=== PATIENT | female | born 1950 | race Caucasian/White ===

== ENCOUNTER 2017-10-09 18:04 | Emergency (ER) | payer SELFPAY, OTHER, MEDICARE | END 2017-10-09 20:05 | disposition left against medical advice (07) | LOC: E/R 18:04 | DX: Z53.21 Procedure and treatment not carried out due to patient leaving prior to being seen by health care provider (principal) ==

== ENCOUNTER 2017-11-17 21:38 | Emergency (ER) | payer MEDICARE, OTHER ==
[2017-11-17 23:14] LABS: ADD MAN DIFF? NO
[2017-11-17 23:18] LABS: WHITE BLOOD COUNT 10.1 10^3/ul (4.8-10.8)
[2017-11-17 23:18] LABS: BASOPHILS % 0.3 % (0.0-2.0); EOSINOPHILS # 0.2 10^3/ul (0.0-0.5); HEMATOCRIT 33.2 % (37.0-47.0); LYMPHOCYTES # 2.7 10^3/ul (0.8-2.9); MEAN CORPUSCULAR HEMOGLOBIN 32.3 pg (29.0-33.0); MEAN CORPUSCULAR HGB CONC 33.1 g/dl (32.0-37.0); MEAN CORPUSCULAR VOLUME 97.4 fl (82.0-101.0); MONOCYTES % 10.2 % (0.0-11.0); NEUTROPHIL # 6.1 10^3/ul (1.6-7.5); NEUTROPHILS % 60.2 % (39.0-77.0); PLATELET COUNT 241 10^3/UL (140-415); RED BLOOD COUNT 3.41 10^6/ul (4.20-5.40); RED CELL DISTRIBUTION WIDTH 13.6 % (11.5-14.5)
[2017-11-17 23:37] LABS: ALANINE AMINOTRANSFERASE 15 IU/L (13-69); ALBUMIN 4.5 g/dl (3.3-4.9); ALBUMIN/GLOBULIN RATIO 1.02; ALKALINE PHOSPHATASE 144 IU/L (42-121); ANION GAP 27 (8-16); ASPARTATE AMINO TRANSFERASE 28 IU/L (15-46); BLOOD UREA NITROGEN 84 mg/dl (7-20); CALCIUM 6.9 mg/dl (8.4-10.2); CARBON DIOXIDE 27 mmol/L (21-31); CHLORIDE 96 mmol/L (97-110); CREATININE 8.94 mg/dl (0.44-1.00); GLUCOSE 130 mg/dl (70-220); POTASSIUM 4.9 mmol/L (3.5-5.1); SODIUM 145 mmol/L (135-144); TOTAL PROTEIN 8.9 g/dl (6.1-8.1)
[2017-11-17 23:38] LABS: LACTIC ACID 0.9 mmol/L (0.5-2.0)
[2017-11-17 23:43] LABS: PARTIAL THROMBOPLASTIN TIME 34.4 Sec (25.0-35.0)
[2017-11-17 23:46] LABS: INR 1.09; PROTIME 14.2 Sec (11.9-14.9); PT RATIO 1.1
[2017-11-18 01:36] LABS: TROPONIN-I 0.013 ng/ml (0.00-0.12)
[2017-11-18 02:00] LABS: LACTIC ACID 0.8 mmol/L (0.5-2.0)
== END 2017-11-18 02:43 | disposition home or self-care (01) ==
LOC: E/R 21:38
DX: R53.1 Weakness (principal); I25.10 Atherosclerotic heart disease of native coronary artery without angina pectoris; I50.9 Heart failure, unspecified; N18.6 End stage renal disease; F17.210 Nicotine dependence, cigarettes, uncomplicated; E11.22 Type 2 diabetes mellitus with diabetic chronic kidney disease; Z79.84 Long term (current) use of oral hypoglycemic drugs
CPT/HCPCS: 36415; 71045; 80053; 83605; 84484; 85025; 85610; 85730; 87040; 93005; 99285-25

== ENCOUNTER 2018-09-11 07:13 | Inpatient (IN) | payer MEDICARE, OTHER ==
[2018-09-11 09:06] LABS: ADD MAN DIFF? NO
[2018-09-11 09:09] LABS: WHITE BLOOD COUNT 8.5 10^3/ul (4.8-10.8)
[2018-09-11 09:09] LABS: BASOPHIL # 0.1 10^3/ul (0.0-0.1); BASOPHILS % 0.9 % (0.0-2.0); EOSINOPHILS # 0.3 10^3/ul (0.0-0.5); EOSINOPHILS % 3.1 % (0.0-7.0); HEMATOCRIT 32.9 % (37.0-47.0); HEMOGLOBIN 10.4 g/dl (12.0-16.0); LYMPHOCYTES # 2.4 10^3/ul (0.8-2.9); MEAN CORPUSCULAR HEMOGLOBIN 31.2 pg (29.0-33.0); MEAN CORPUSCULAR HGB CONC 31.6 g/dl (32.0-37.0); MEAN CORPUSCULAR VOLUME 98.8 fl (82.0-101.0); MEAN PLATELET VOLUME 10.2 fl (7.4-10.4); MONOCYTE # 0.9 10^3/ul (0.3-0.9); NEUTROPHIL # 4.9 10^3/ul (1.6-7.5); NEUTROPHILS % 57.6 % (39.0-77.0); PLATELET COUNT 218 10^3/UL (140-415); RED BLOOD COUNT 3.33 10^6/ul (4.20-5.40)
[2018-09-11 09:28] LABS: CHOLESTEROL 134 mg/dl (100-200)
[2018-09-11 09:28] LABS: CHOL/HDL RATIO 4.6 RATIO; HDL CHOLESTEROL 29 mg/dl (35-98); LDL CHOLESTEROL,CALCULATED 72 mg/dl; TRIGLYCERIDES 164 mg/dl (0-149)
[2018-09-11 09:29] LABS: ANION GAP 15 (5-13); BLOOD UREA NITROGEN 53 mg/dl (7-20); CALCIUM 8.4 mg/dl (8.4-10.2); CARBON DIOXIDE 30 mmol/L (21-31); CHLORIDE 94 mmol/L (97-110); CREATININE 5.95 mg/dl (0.44-1.00); Estimated GFR 7 mL/min (>60); GLUCOSE 97 mg/dl (70-220); POTASSIUM 4.9 mmol/L (3.5-5.1); SODIUM 139 mmol/L (135-144)
[2018-09-11 09:33] LABS: INR 0.99; PROTIME 13.2 Sec (11.9-14.9)
[2018-09-11 09:34] LABS: PARTIAL THROMBOPLASTIN TIME 29.6 Sec (23.0-35.0)
[2018-09-11] MEDS ORDERED: IODIXANOL LOCM 100 ML BTL ×2 (09:47→10:53)
[2018-09-11] MEDS ORDERED: LIDOCAINE 1% (MDV) 20 ML INJ ×2 (09:47→10:13)
[2018-09-11] MEDS ORDERED: FENTAnyl 50 MCG/ML VIAL (09:48)
[2018-09-11] MEDS ORDERED: VERAPAMIL 5 MG INJ (09:48)
[2018-09-11] MEDS ORDERED: NITROGLYCERIN (IC) 100 MCG/ML INJ (09:48)
[2018-09-11] MEDS ORDERED: HEPARIN 1000 UNITS/ML 10 ML INJ (09:48)
[2018-09-11] MEDS ORDERED: MIDAZOLAM 1 MG/ML 2 ML INJ (09:49)
[2018-09-11] MEDS: SOD CHLORIDE 0.9% 1,000 ML IV (10:51)
[2018-09-11] MEDS ORDERED: ONDANSETRON 4 MG INJ IV ×2 (11:00→15:30)
[2018-09-11] MEDS ORDERED: AL HYDROX/MG HYDROX/SIMETH 30 ML CUP PO (11:00)
[2018-09-11] MEDS ORDERED: morphine 2 MG INJ IV (11:00)
[2018-09-11] MEDS: hydrALAzine 20 MG INJ IV (12:00)
[2018-09-11] MEDS: LIDOCAINE 1% (MPF) 5 ML VIAL SC (14:00)
[2018-09-11] MEDS ORDERED: OXYCODONE/ACETAMINOPHEN (5/325) TAB PO (15:30)
[2018-09-11] MEDS ORDERED: ACETAMINOPHEN 325 MG TAB PO (15:30)
[2018-09-11] MEDS ORDERED: NACL 0.9% 3 ML SYG IV (15:30)
[2018-09-11] MEDS ORDERED: morphine SULFATE/PF (2 MG/2 ML) SYG IV (15:30)
[2018-09-11] MEDS: CALCIUM ACETATE 667 MG CAP PO (17:28)
[2018-09-11] MEDS: SEVELAMER CARBONATE 0.8 GM PKT PO (17:28)
[2018-09-11] MEDS ORDERED: GLUCAGON 1 MG INJ IM (19:00)
[2018-09-11] MEDS ORDERED: GLUCOSE GEL 15 GRAM TUBE PO ×2 (19:00)
[2018-09-11] MEDS ORDERED: DEXTROSE 50% 50 ML SYRINGE IV ×2 (19:00)
[2018-09-11] MEDS ORDERED: GLUCOSE GEL 15 GRAM TUBE BUCCAL (19:00)
[2018-09-11] MEDS: INSULIN ASPART [NOVOLOG] 3 ML PEN SC (21:00)
[2018-09-11] MEDS: CALCIUM/VITAMIN D (500/200) TAB PO (21:15)
[2018-09-11] MEDS: GABAPENTIN 100 MG CAP PO (21:15)
[2018-09-11] MEDS: BENAZEPRIL 20 MG TAB PO (21:15)
[2018-09-11] MEDS: FAMOTIDINE 20 MG TAB PO (21:15)
[2018-09-11] MEDS: ATORVASTATIN 40 MG TAB PO (21:15)
[2018-09-11] MEDS: DOXAZOSIN 2 MG TAB PO (21:16)
[2018-09-11] MEDS: AMLODIPINE 5 MG TAB PO (21:16)
[2018-09-11] MEDS: TICAGRELOR 90 MG TABLET PO (21:24)
[2018-09-11] MEDS: DOCUSATE SODIUM 100 MG CAP PO (21:31)
[2018-09-11] MEDS: ACETAMINOPHEN 325 MG TAB PO (23:55)
[2018-09-12 06:24] LABS: ADD MAN DIFF? NO
[2018-09-12 06:30] LABS: WHITE BLOOD COUNT 9.2 10^3/ul (4.8-10.8)
[2018-09-12 06:30] LABS: BASOPHIL # 0.1 10^3/ul (0.0-0.1); BASOPHILS % 0.5 % (0.0-2.0); EOSINOPHILS # 0.3 10^3/ul (0.0-0.5); EOSINOPHILS % 3.3 % (0.0-7.0); HEMATOCRIT 29.6 % (37.0-47.0); HEMOGLOBIN 9.6 g/dl (12.0-16.0); LYMPHOCYTES # 2.2 10^3/ul (0.8-2.9); LYMPHOCYTES % 24.1 % (15.0-51.0); MEAN CORPUSCULAR HEMOGLOBIN 31.7 pg (29.0-33.0); MEAN CORPUSCULAR HGB CONC 32.4 g/dl (32.0-37.0); MEAN CORPUSCULAR VOLUME 97.7 fl (82.0-101.0); MEAN PLATELET VOLUME 10.5 fl (7.4-10.4); MONOCYTE # 1.2 10^3/ul (0.3-0.9); MONOCYTES % 12.6 % (0.0-11.0); NEUTROPHIL # 5.4 10^3/ul (1.6-7.5); NEUTROPHILS % 59.2 % (39.0-77.0); PLATELET COUNT 203 10^3/UL (140-415); RED BLOOD COUNT 3.03 10^6/ul (4.20-5.40); RED CELL DISTRIBUTION WIDTH 13.2 % (11.5-14.5)
[2018-09-12 06:51] LABS: HEMOGLOBIN A1C 6.7 % (0-5.9)
[2018-09-12 07:16] LABS: ANION GAP 15 (5-13); BLOOD UREA NITROGEN 69 mg/dl (7-20); CALCIUM 8.3 mg/dl (8.4-10.2); CARBON DIOXIDE 30 mmol/L (21-31); CHLORIDE 90 mmol/L (97-110); CREATININE 7.61 mg/dl (0.44-1.00); Estimated GFR 5 mL/min (>60); GLUCOSE 91 mg/dl (70-220); MAGNESIUM 2.6 mg/dl (1.7-2.5); POTASSIUM 4.9 mmol/L (3.5-5.1); SODIUM 135 mmol/L (135-144)
[2018-09-12] MEDS: INSULIN ASPART [NOVOLOG] 3 ML PEN SC ×4 (07:55→21:00)
[2018-09-12] MEDS: CALCIUM ACETATE 667 MG CAP PO ×3 (08:44→20:12)
[2018-09-12] MEDS: ASPIRIN (EC) 81 MG TAB PO (09:23)
[2018-09-12] MEDS: MULTIVIT/CA CARB/B CMPLX/FA TAB PO (09:23)
[2018-09-12] MEDS: CALCIUM/VITAMIN D (500/200) TAB PO ×3 (09:23→21:47)
[2018-09-12] MEDS: DOCUSATE SODIUM 100 MG CAP PO (09:23)
[2018-09-12] MEDS: FOLIC ACID 1 MG TAB PO (09:24)
[2018-09-12] MEDS: AMLODIPINE 5 MG TAB PO ×2 (09:24→21:52)
[2018-09-12] MEDS: BENAZEPRIL 20 MG TAB PO ×2 (09:24→21:47)
[2018-09-12] MEDS: SEVELAMER CARBONATE 800 MG TABLET PO ×3 (09:24→20:12)
[2018-09-12] MEDS: GABAPENTIN 100 MG CAP PO ×3 (09:24→21:47)
[2018-09-12] MEDS: TICAGRELOR 90 MG TABLET PO (09:26)
[2018-09-12] MEDS: ACETAMINOPHEN 325 MG TAB PO (09:38)
[2018-09-12] MEDS: CALCITRIOL 1 MCG INJ IV (12:31)
[2018-09-12 15:25] LABS: HEPATITIS B SURFACE ANTIGEN NEGATIVE (NEGATIVE)
[2018-09-12 15:43] LABS: HEPATITIS B SURFACE ANTIBODY POSITIVE (NEGATIVE)
[2018-09-12] MEDS: DOXAZOSIN 2 MG TAB PO (21:47)
[2018-09-12] MEDS: FAMOTIDINE 20 MG TAB PO (21:47)
[2018-09-12] MEDS: ATORVASTATIN 40 MG TAB PO (21:47)
[2018-09-12] MEDS: EPOETIN 10000 UNITS/1 ML INJ (ESRD) SC (21:49)
[2018-09-13 06:25] LABS: ADD MAN DIFF? NO
[2018-09-13 06:34] LABS: WHITE BLOOD COUNT 8.8 10^3/ul (4.8-10.8)
[2018-09-13 06:34] LABS: BASOPHIL # 0.1 10^3/ul (0.0-0.1); BASOPHILS % 0.7 % (0.0-2.0); EOSINOPHILS # 0.3 10^3/ul (0.0-0.5); EOSINOPHILS % 3.1 % (0.0-7.0); HEMATOCRIT 30.3 % (37.0-47.0); HEMOGLOBIN 9.9 g/dl (12.0-16.0); LYMPHOCYTES % 22.4 % (15.0-51.0); MEAN CORPUSCULAR HGB CONC 32.7 g/dl (32.0-37.0); MEAN CORPUSCULAR VOLUME 98.1 fl (82.0-101.0); MEAN PLATELET VOLUME 10.4 fl (7.4-10.4); MONOCYTE # 1.1 10^3/ul (0.3-0.9); MONOCYTES % 12.7 % (0.0-11.0); NEUTROPHIL # 5.4 10^3/ul (1.6-7.5); NEUTROPHILS % 60.8 % (39.0-77.0); PLATELET COUNT 204 10^3/UL (140-415); RED BLOOD COUNT 3.09 10^6/ul (4.20-5.40); RED CELL DISTRIBUTION WIDTH 13.4 % (11.5-14.5)
[2018-09-13 06:57] LABS: ANION GAP 10 (5-13); BLOOD UREA NITROGEN 37 mg/dl (7-20); CALCIUM 8.9 mg/dl (8.4-10.2); CARBON DIOXIDE 30 mmol/L (21-31); CHLORIDE 96 mmol/L (97-110); CREATININE 4.86 mg/dl (0.44-1.00); Estimated GFR 9 mL/min (>60); GLUCOSE 102 mg/dl (70-220); MAGNESIUM 2.5 mg/dl (1.7-2.5); PHOSPHORUS 3.5 mg/dl (2.5-4.9); SODIUM 136 mmol/L (135-144)
[2018-09-13 07:12] LABS: POTASSIUM 5.4 mmol/L (3.5-5.1)
[2018-09-13] MEDS: INSULIN ASPART [NOVOLOG] 3 ML PEN SC ×4 (07:48→21:28)
[2018-09-13] MEDS: DOCUSATE SODIUM 100 MG CAP PO (09:02)
[2018-09-13] MEDS: GABAPENTIN 100 MG CAP PO ×3 (09:03→21:04)
[2018-09-13] MEDS: BENAZEPRIL 20 MG TAB PO ×2 (09:03→21:04)
[2018-09-13] MEDS: AMLODIPINE 5 MG TAB PO ×2 (09:03→21:05)
[2018-09-13] MEDS: ASPIRIN (EC) 81 MG TAB PO (09:04)
[2018-09-13] MEDS: FOLIC ACID 1 MG TAB PO (09:04)
[2018-09-13] MEDS: CALCIUM/VITAMIN D (500/200) TAB PO ×3 (09:04→21:04)
[2018-09-13] MEDS: MULTIVIT/CA CARB/B CMPLX/FA TAB PO (09:05)
[2018-09-13] MEDS: SEVELAMER CARBONATE 800 MG TABLET PO ×3 (09:05→17:41)
[2018-09-13] MEDS: CALCIUM ACETATE 667 MG CAP PO ×3 (09:06→17:41)
[2018-09-13] MEDS: METOPROLOL 25 MG TAB PO ×2 (10:36→21:04)
[2018-09-13] MEDS: ATORVASTATIN 40 MG TAB PO (21:04)
[2018-09-13] MEDS: FAMOTIDINE 20 MG TAB PO (21:04)
[2018-09-13] MEDS: DOXAZOSIN 2 MG TAB PO (21:04)
[2018-09-14] MEDS: INSULIN ASPART [NOVOLOG] 3 ML PEN SC ×4 (07:31→20:47)
[2018-09-14] MEDS: SEVELAMER CARBONATE 800 MG TABLET PO ×3 (08:29→17:52)
[2018-09-14] MEDS: CALCIUM ACETATE 667 MG CAP PO ×3 (08:29→17:52)
[2018-09-14] MEDS: MULTIVIT/CA CARB/B CMPLX/FA TAB PO (08:30)
[2018-09-14] MEDS: ASPIRIN (EC) 81 MG TAB PO (08:30)
[2018-09-14] MEDS: CALCIUM/VITAMIN D (500/200) TAB PO ×3 (08:30→20:45)
[2018-09-14] MEDS: GABAPENTIN 100 MG CAP PO ×3 (08:30→20:45)
[2018-09-14] MEDS: FOLIC ACID 1 MG TAB PO (08:30)
[2018-09-14] MEDS: DOCUSATE SODIUM 100 MG CAP PO (08:31)
[2018-09-14] MEDS: METOPROLOL 25 MG TAB PO ×2 (09:00→20:45)
[2018-09-14] MEDS: BENAZEPRIL 20 MG TAB PO ×2 (09:00→20:46)
[2018-09-14] MEDS: DOXAZOSIN 2 MG TAB PO (20:45)
[2018-09-14] MEDS: FAMOTIDINE 20 MG TAB PO (20:45)
[2018-09-14] MEDS: ATORVASTATIN 40 MG TAB PO (20:45)
[2018-09-15] MEDS: INSULIN ASPART [NOVOLOG] 3 ML PEN SC ×4 (07:55→20:47)
[2018-09-15] MEDS: SEVELAMER CARBONATE 800 MG TABLET PO ×3 (08:01→17:44)
[2018-09-15] MEDS: BENAZEPRIL 20 MG TAB PO ×2 (08:02→20:38)
[2018-09-15] MEDS: ASPIRIN (EC) 81 MG TAB PO (08:03)
[2018-09-15] MEDS: MULTIVIT/CA CARB/B CMPLX/FA TAB PO (08:03)
[2018-09-15] MEDS: METOPROLOL 25 MG TAB PO ×2 (08:03→20:38)
[2018-09-15] MEDS: CALCIUM ACETATE 667 MG CAP PO ×3 (08:04→17:44)
[2018-09-15] MEDS: FOLIC ACID 1 MG TAB PO (08:04)
[2018-09-15] MEDS: CALCIUM/VITAMIN D (500/200) TAB PO ×3 (08:04→20:40)
[2018-09-15] MEDS: GABAPENTIN 100 MG CAP PO ×3 (08:04→20:38)
[2018-09-15] MEDS: DOCUSATE SODIUM 100 MG CAP PO (08:05)
[2018-09-15] MEDS: NIFEdipine (XL) 60 MG TAB PO (08:39)
[2018-09-15] MEDS: ISOSORBIDE DINITRATE 20 MG TAB PO ×3 (13:00→20:39)
[2018-09-15] MEDS: BISACODYL (EC) 5 MG TAB PO (15:00)
[2018-09-15] MEDS: EPOETIN 10000 UNITS/1 ML INJ (ESRD) SC (17:45)
[2018-09-15] MEDS: DOXAZOSIN 2 MG TAB PO (20:38)
[2018-09-15] MEDS: ATORVASTATIN 40 MG TAB PO (20:38)
[2018-09-15] MEDS: FAMOTIDINE 20 MG TAB PO (20:40)
[2018-09-15] MEDS ORDERED: morphine LIQ (10 MG/5 ML) CUP PO ×2 (23:45)
[2018-09-16 07:17] LABS: ANION GAP 10 (5-13); BLOOD UREA NITROGEN 60 mg/dl (7-20); CALCIUM 9.4 mg/dl (8.4-10.2); CARBON DIOXIDE 30 mmol/L (21-31); CHLORIDE 97 mmol/L (97-110); CREATININE 7.27 mg/dl (0.44-1.00); Estimated GFR 6 mL/min (>60); GLUCOSE 94 mg/dl (70-220); MAGNESIUM 2.7 mg/dl (1.7-2.5); PHOSPHORUS 2.8 mg/dl (2.5-4.9); POTASSIUM 5.4 mmol/L (3.5-5.1); SODIUM 137 mmol/L (135-144)
[2018-09-16] MEDS: INSULIN ASPART [NOVOLOG] 3 ML PEN SC ×4 (07:55→21:00)
[2018-09-16] MEDS: SEVELAMER CARBONATE 800 MG TABLET PO ×3 (08:50→18:34)
[2018-09-16] MEDS: CALCIUM ACETATE 667 MG CAP PO ×3 (08:51→18:34)
[2018-09-16] MEDS: ASPIRIN (EC) 81 MG TAB PO (08:51)
[2018-09-16] MEDS: CALCIUM/VITAMIN D (500/200) TAB PO ×3 (08:51→21:22)
[2018-09-16] MEDS: FOLIC ACID 1 MG TAB PO (08:51)
[2018-09-16] MEDS: BENAZEPRIL 20 MG TAB PO ×2 (08:51→21:00)
[2018-09-16] MEDS: DOCUSATE SODIUM 100 MG CAP PO (08:51)
[2018-09-16] MEDS: MULTIVIT/CA CARB/B CMPLX/FA TAB PO (08:51)
[2018-09-16] MEDS: METOPROLOL 25 MG TAB PO ×2 (08:52→21:00)
[2018-09-16] MEDS: GABAPENTIN 100 MG CAP PO ×3 (08:52→21:21)
[2018-09-16] MEDS: ISOSORBIDE DINITRATE 20 MG TAB PO ×3 (08:52→21:00)
[2018-09-16] MEDS: NIFEdipine (XL) 60 MG TAB PO (08:53)
[2018-09-16] MEDS: DOXAZOSIN 2 MG TAB PO (21:00)
[2018-09-16] MEDS: FAMOTIDINE 20 MG TAB PO (21:21)
[2018-09-16] MEDS: ATORVASTATIN 40 MG TAB PO (21:21)
[2018-09-17] MEDS: PROMETHAZINE/CODEINE 5ML CUP PO (00:21)
[2018-09-17] MEDS: ISOSORBIDE DINITRATE 20 MG TAB PO ×3 (00:22→13:05)
[2018-09-17] MEDS: INSULIN ASPART [NOVOLOG] 3 ML PEN SC ×3 (07:29→17:46)
[2018-09-17] MEDS: CALCIUM ACETATE 667 MG CAP PO ×3 (07:30→17:39)
[2018-09-17] MEDS: SEVELAMER CARBONATE 800 MG TABLET PO ×3 (07:30→17:39)
[2018-09-17] MEDS: CALCIUM/VITAMIN D (500/200) TAB PO ×2 (08:01→13:05)
[2018-09-17] MEDS: MULTIVIT/CA CARB/B CMPLX/FA TAB PO (08:01)
[2018-09-17] MEDS: NIFEdipine (XL) 60 MG TAB PO (08:01)
[2018-09-17] MEDS: FOLIC ACID 1 MG TAB PO (08:01)
[2018-09-17] MEDS: ASPIRIN (EC) 81 MG TAB PO (08:01)
[2018-09-17] MEDS: BENAZEPRIL 20 MG TAB PO (08:02)
[2018-09-17] MEDS: DOCUSATE SODIUM 100 MG CAP PO (08:02)
[2018-09-17] MEDS: GABAPENTIN 100 MG CAP PO ×2 (08:02→13:05)
[2018-09-17] MEDS: METOPROLOL 25 MG TAB PO (08:04)
[2018-09-17] MEDS: EPOETIN 10000 UNITS/1 ML INJ (ESRD) SC (17:40)
== END 2018-09-17 21:42 | disposition short-term general hospital (02) | DRG 286 ==
LOC: CCL 07:13 → SDS 07:13 → CCL 10:50 → REC 10:51 → TEL 12:35
PROC: 4A023N7 Measurement of Cardiac Sampling and Pressure, Left Heart, Percutaneous Approach (ICD-10-PCS; principal; 2018-09-11 09:00)
PROC: B211YZZ Fluoroscopy of Multiple Coronary Arteries using Other Contrast (ICD-10-PCS; 2018-09-11 09:00)
PROC: B215YZZ Fluoroscopy of Left Heart using Other Contrast (ICD-10-PCS; 2018-09-11 09:00)
PROC: 5A1D70Z Performance of Urinary Filtration, Intermittent, Less than 6 Hours Per Day (ICD-10-PCS; 2018-09-11 09:27)
PROC: 5A1D70Z Performance of Urinary Filtration, Intermittent, Less than 6 Hours Per Day (ICD-10-PCS; 2018-09-11 09:27)
PROC: 5A1D70Z Performance of Urinary Filtration, Intermittent, Less than 6 Hours Per Day (ICD-10-PCS; 2018-09-11 09:27)
PROC: 5A1D70Z Performance of Urinary Filtration, Intermittent, Less than 6 Hours Per Day (ICD-10-PCS; 2018-09-11 09:27)
DX: I25.10 Atherosclerotic heart disease of native coronary artery without angina pectoris (principal); N18.6 End stage renal disease; I13.2 Hypertensive heart and chronic kidney disease with heart failure and with stage 5 chronic kidney disease, or end stage renal disease; I50.32 Chronic diastolic (congestive) heart failure; E11.22 Type 2 diabetes mellitus with diabetic chronic kidney disease; E87.5 Hyperkalemia; E78.5 Hyperlipidemia, unspecified; D63.1 Anemia in chronic kidney disease; Z79.4 Long term (current) use of insulin; Z79.84 Long term (current) use of oral hypoglycemic drugs; Z79.82 Long term (current) use of aspirin; Z99.2 Dependence on renal dialysis; Z87.891 Personal history of nicotine dependence; I25.2 Old myocardial infarction; Z95.5 Presence of coronary angioplasty implant and graft
CPT/HCPCS: 71045; 80048; 80061; 82962; 83036; 83735; 84100; 85025; 85610; 85730; 86706; 87340; 90935; 93005; 93458

== ENCOUNTER 2018-11-04 15:13 | Inpatient (IN) | payer MEDICARE, OTHER ==
[2018-11-04] MEDS ORDERED: NITROGLYCERIN 50 MG/D5W (PMX) 250 ML (15:48)
[2018-11-04] MEDS: NITROGLYCERIN 50 MG/D5W (PMX) 250 ML IV (16:44)
[2018-11-04 16:46] LABS: ADD MAN DIFF? NO
[2018-11-04 16:55] LABS: BASOPHIL # 0.1 10^3/ul (0.0-0.1); EOSINOPHILS # 0.5 10^3/ul (0.0-0.5); EOSINOPHILS % 4.3 % (0.0-7.0); HEMATOCRIT 28.8 % (37.0-47.0); HEMOGLOBIN 8.7 g/dl (12.0-16.0); LYMPHOCYTES # 2.6 10^3/ul (0.8-2.9); LYMPHOCYTES % 24.5 % (15.0-51.0); MEAN CORPUSCULAR HEMOGLOBIN 29.4 pg (29.0-33.0); MEAN CORPUSCULAR HGB CONC 30.2 g/dl (32.0-37.0); MEAN CORPUSCULAR VOLUME 97.3 fl (82.0-101.0); MEAN PLATELET VOLUME 10.1 fl (7.4-10.4); MONOCYTE # 1.1 10^3/ul (0.3-0.9); MONOCYTES % 10.3 % (0.0-11.0); NEUTROPHIL # 6.2 10^3/ul (1.6-7.5); NEUTROPHILS % 59.5 % (39.0-77.0); PLATELET COUNT 336 10^3/UL (140-415); RED BLOOD COUNT 2.96 10^6/ul (4.20-5.40); RED CELL DISTRIBUTION WIDTH 15.6 % (11.5-14.5)
[2018-11-04 16:55] LABS: WHITE BLOOD COUNT 10.5 10^3/ul (4.8-10.8)
[2018-11-04 17:10] LABS: INR 1.22; PROTIME 15.5 Sec (11.9-14.9); PT RATIO 1.2
[2018-11-04 17:11] LABS: PARTIAL THROMBOPLASTIN TIME 31.3 Sec (23.0-35.0)
[2018-11-04 17:16] LABS: ANION GAP 17 (5-13); BLOOD UREA NITROGEN 41 mg/dl (7-20); CALCIUM 8.8 mg/dl (8.4-10.2); CARBON DIOXIDE 25 mmol/L (21-31); CHLORIDE 97 mmol/L (97-110); CREATININE 5.37 mg/dl (0.44-1.00); Estimated GFR 8 mL/min (>60); GLUCOSE 91 mg/dl (70-220); POTASSIUM 5.4 mmol/L (3.5-5.1); SODIUM 139 mmol/L (135-144)
[2018-11-04 17:28] LABS: TROPONIN-I < 0.012 ng/ml (0.000-0.120)
[2018-11-04] MEDS ORDERED: EPOETIN 4000 UNITS/ML VIAL (ONCOLOGY) SC (22:00)
[2018-11-04] MEDS ORDERED: GLUCOSE GEL 15 GRAM TUBE PO ×2 (22:00)
[2018-11-04] MEDS ORDERED: GLUCAGON 1 MG INJ IM (22:00)
[2018-11-04] MEDS ORDERED: DEXTROSE 50% 50 ML SYRINGE IV (22:00)
[2018-11-04] MEDS: NITROGLYCERIN 2% 1 GM OINT PKT TD (22:45)
[2018-11-05] MEDS: ACCU-CHEK XX (02:00)
[2018-11-05 07:24] LABS: ADD MAN DIFF? NO
[2018-11-05] MEDS: hydrALAzine 20 MG INJ IV (07:24)
[2018-11-05 07:29] LABS: BASOPHIL # 0.1 10^3/ul (0.0-0.1); EOSINOPHILS # 0.5 10^3/ul (0.0-0.5); EOSINOPHILS % 4.2 % (0.0-7.0); HEMATOCRIT 27.4 % (37.0-47.0); HEMOGLOBIN 8.4 g/dl (12.0-16.0); LYMPHOCYTES % 27.4 % (15.0-51.0); MEAN CORPUSCULAR HEMOGLOBIN 29.4 pg (29.0-33.0); MEAN CORPUSCULAR HGB CONC 30.7 g/dl (32.0-37.0); MEAN CORPUSCULAR VOLUME 95.8 fl (82.0-101.0); MEAN PLATELET VOLUME 10.2 fl (7.4-10.4); MONOCYTE # 1.1 10^3/ul (0.3-0.9); NEUTROPHIL # 6.3 10^3/ul (1.6-7.5); NEUTROPHILS % 57.1 % (39.0-77.0); PLATELET COUNT 323 10^3/UL (140-415); RED BLOOD COUNT 2.86 10^6/ul (4.20-5.40); RED CELL DISTRIBUTION WIDTH 15.6 % (11.5-14.5)
[2018-11-05 07:29] LABS: WHITE BLOOD COUNT 11.1 10^3/ul (4.8-10.8)
[2018-11-05 07:38] LABS: HEMOGLOBIN A1C 5.8 % (0-5.9)
[2018-11-05 07:49] LABS: ANION GAP 18 (5-13); BLOOD UREA NITROGEN 45 mg/dl (7-20); CALCIUM 8.8 mg/dl (8.4-10.2); CARBON DIOXIDE 25 mmol/L (21-31); CHLORIDE 98 mmol/L (97-110); CHOL/HDL RATIO 6.2 RATIO; CHOLESTEROL 113 mg/dl (100-200); CREATININE 6.78 mg/dl (0.44-1.00); Estimated GFR 6 mL/min (>60); GLUCOSE 61 mg/dl (70-220); HDL CHOLESTEROL 18 mg/dl (35-98); LDL CHOLESTEROL,CALCULATED 59 mg/dl; POTASSIUM 5.4 mmol/L (3.5-5.1); SODIUM 141 mmol/L (135-144); TRIGLYCERIDES 181 mg/dl (0-149)
[2018-11-05] MEDS: INSULIN ASPART [NOVOLOG] 3 ML PEN SC ×4 (07:55→21:00)
[2018-11-05] MEDS: DEXTROSE 50% 50 ML SYRINGE IV (08:13)
[2018-11-05 08:51] LABS: ADD MAN DIFF? NO
[2018-11-05 08:53] LABS: WHITE BLOOD COUNT 10.1 10^3/ul (4.8-10.8)
[2018-11-05 08:53] LABS: BASOPHIL # 0.1 10^3/ul (0.0-0.1); BASOPHILS % 0.8 % (0.0-2.0); EOSINOPHILS # 0.2 10^3/ul (0.0-0.5); EOSINOPHILS % 2.3 % (0.0-7.0); HEMATOCRIT 29.1 % (37.0-47.0); HEMOGLOBIN 8.8 g/dl (12.0-16.0); LYMPHOCYTES # 1.5 10^3/ul (0.8-2.9); LYMPHOCYTES % 14.3 % (15.0-51.0); MEAN CORPUSCULAR HGB CONC 30.2 g/dl (32.0-37.0); MEAN PLATELET VOLUME 9.8 fl (7.4-10.4); MONOCYTE # 0.8 10^3/ul (0.3-0.9); MONOCYTES % 7.4 % (0.0-11.0); NEUTROPHIL # 7.6 10^3/ul (1.6-7.5); NEUTROPHILS % 74.6 % (39.0-77.0); PLATELET COUNT 321 10^3/UL (140-415); RED BLOOD COUNT 3.03 10^6/ul (4.20-5.40); RED CELL DISTRIBUTION WIDTH 15.7 % (11.5-14.5)
[2018-11-05] MEDS: NITROGLYCERIN 2% 1 GM OINT PKT TD ×3 (09:00→21:15)
[2018-11-05] MEDS: CLOPIDOGREL 75 MG TAB PO (09:00)
[2018-11-05] MEDS: METOPROLOL 25 MG TAB PO ×2 (09:00→21:14)
[2018-11-05] MEDS: DOCUSATE SODIUM 100 MG CAP PO (09:00)
[2018-11-05] MEDS ORDERED: NITROGLYCERIN 2% 1 GM OINT PKT TD (09:00)
[2018-11-05] MEDS: MULTIVIT/CA CARB/B CMPLX/FA TAB PO (09:00)
[2018-11-05] MEDS: ASPIRIN (EC) 81 MG TAB PO (09:00)
[2018-11-05 09:08] LABS: HEMOGLOBIN A1C 5.7 % (0-5.9)
[2018-11-05 09:10] LABS: ANION GAP 20 (5-13); BLOOD UREA NITROGEN 44 mg/dl (7-20); CARBON DIOXIDE 24 mmol/L (21-31); CHLORIDE 97 mmol/L (97-110); CHOL/HDL RATIO 5.6 RATIO; CHOLESTEROL 119 mg/dl (100-200); CREATININE 7.14 mg/dl (0.44-1.00); Estimated GFR 6 mL/min (>60); GLUCOSE 206 mg/dl (70-220); HDL CHOLESTEROL 21 mg/dl (35-98); LDL CHOLESTEROL,CALCULATED 64 mg/dl; SODIUM 141 mmol/L (135-144); TRIGLYCERIDES 172 mg/dl (0-149)
[2018-11-05 09:12] LABS: CREATINE KINASE < 20 IU/L (23-200); INR 1.23; PROTIME 15.6 Sec (11.9-14.9); PT RATIO 1.2
[2018-11-05 09:13] LABS: PARTIAL THROMBOPLASTIN TIME 30.3 Sec (23.0-35.0)
[2018-11-05 09:22] LABS: CK-MB < 0.22 ng/ml (0.0-2.4); TROPONIN-I < 0.012 ng/ml (0.000-0.120)
[2018-11-05] MEDS: ATORVASTATIN 80 MG TAB PO (10:35)
[2018-11-05 11:59] LABS: HEPATITIS B SURFACE ANTIGEN NEGATIVE (NEGATIVE)
[2018-11-05] MEDS: PIPER-TAZO 2.25 GM (PMX) 50 ML IVPB ×2 (14:00→23:13)
[2018-11-05] MEDS ORDERED: VANCOMYCIN IV PER PHARMACY XX (14:00)
[2018-11-05 14:56] LABS: ERYTHROCYTE SEDIMENTATION RATE 88 mm/Hr (0-30)
[2018-11-05] MEDS: LORAZEPAM 2 MG INJ IV (15:01)
[2018-11-05 18:28] LABS: CREATINE KINASE 26 IU/L (23-200)
[2018-11-05] MEDS: GLUCOSE GEL 15 GRAM TUBE BUCCAL (18:37)
[2018-11-05 18:39] LABS: CK INDEX 0.8; CK-MB < 0.22 ng/ml (0.0-2.4); TROPONIN-I 0.022 ng/ml (0.000-0.120)
[2018-11-05] MEDS: EPOETIN 4000 UNITS/1 ML INJ (ESRD) SC (18:44)
[2018-11-05] MEDS: VANCOMYCIN HCL 1.25 GM in SOD CHLORIDE 0.9% 250 ML IVPB (18:44)
[2018-11-05 19:02] LABS: MAGNESIUM 1.8 mg/dl (1.7-2.5)
[2018-11-05 19:02] LABS: PHOSPHORUS 2.1 mg/dl (2.5-4.9)
[2018-11-05] MEDS ORDERED: LEVETIRACETAM 1000 MG (PMX) 100 ML IVPB (21:00)
[2018-11-05] MEDS: LEVETIRACETAM 500 MG (PMX) 100 ML IVPB (21:14)
[2018-11-05] MEDS: ATORVASTATIN 40 MG TAB PO (21:14)
[2018-11-05] MEDS: traMADol 50 MG TAB PO (23:19)
[2018-11-06 01:11] LABS: CREATINE KINASE 27 IU/L (23-200)
[2018-11-06] MEDS: ACCU-CHEK XX (01:22)
[2018-11-06 01:24] LABS: CK INDEX 0.8; CK-MB < 0.22 ng/ml (0.0-2.4); TROPONIN-I 0.022 ng/ml (0.000-0.120)
[2018-11-06 06:53] LABS: ADD MAN DIFF? NO
[2018-11-06 07:01] LABS: WHITE BLOOD COUNT 9.5 10^3/ul (4.8-10.8)
[2018-11-06 07:01] LABS: BASOPHIL # 0.1 10^3/ul (0.0-0.1); BASOPHILS % 1.5 % (0.0-2.0); EOSINOPHILS # 0.4 10^3/ul (0.0-0.5); EOSINOPHILS % 4.4 % (0.0-7.0); HEMATOCRIT 29.9 % (37.0-47.0); HEMOGLOBIN 9.2 g/dl (12.0-16.0); LYMPHOCYTES # 2.4 10^3/ul (0.8-2.9); LYMPHOCYTES % 24.8 % (15.0-51.0); MEAN CORPUSCULAR HGB CONC 30.8 g/dl (32.0-37.0); MEAN CORPUSCULAR VOLUME 94.3 fl (82.0-101.0); MEAN PLATELET VOLUME 9.9 fl (7.4-10.4); MONOCYTE # 1.2 10^3/ul (0.3-0.9); MONOCYTES % 12.3 % (0.0-11.0); NEUTROPHIL # 5.4 10^3/ul (1.6-7.5); NEUTROPHILS % 56.8 % (39.0-77.0); PLATELET COUNT 307 10^3/UL (140-415); RED BLOOD COUNT 3.17 10^6/ul (4.20-5.40); RED CELL DISTRIBUTION WIDTH 15.7 % (11.5-14.5)
[2018-11-06 07:16] LABS: CREATINE KINASE 28 IU/L (23-200)
[2018-11-06 07:23] LABS: ANION GAP 11 (5-13); BLOOD UREA NITROGEN 20 mg/dl (7-20); CALCIUM 8.4 mg/dl (8.4-10.2); CARBON DIOXIDE 31 mmol/L (21-31); CHLORIDE 95 mmol/L (97-110); CREATININE 4.08 mg/dl (0.44-1.00); Estimated GFR 11 mL/min (>60); GLUCOSE 74 mg/dl (70-220); MAGNESIUM 1.9 mg/dl (1.7-2.5); PHOSPHORUS 4.2 mg/dl (2.5-4.9); POTASSIUM 4.5 mmol/L (3.5-5.1); SODIUM 137 mmol/L (135-144)
[2018-11-06 07:29] LABS: CK INDEX 0.8; CK-MB < 0.22 ng/ml (0.0-2.4); TROPONIN-I 0.027 ng/ml (0.000-0.120)
[2018-11-06] MEDS: INSULIN ASPART [NOVOLOG] 3 ML PEN SC ×4 (07:38→21:41)
[2018-11-06] MEDS: traMADol 50 MG TAB PO (07:47)
[2018-11-06] MEDS: LEVETIRACETAM 500 MG (PMX) 100 ML IVPB ×2 (08:53→23:06)
[2018-11-06] MEDS: DOCUSATE SODIUM 100 MG CAP PO (08:55)
[2018-11-06] MEDS: MULTIVIT/CA CARB/B CMPLX/FA TAB PO (08:55)
[2018-11-06] MEDS: CLOPIDOGREL 75 MG TAB PO (08:55)
[2018-11-06] MEDS: METOPROLOL 25 MG TAB PO ×2 (08:56→21:38)
[2018-11-06] MEDS: ASPIRIN (EC) 81 MG TAB PO (08:56)
[2018-11-06] MEDS: NITROGLYCERIN 2% 1 GM OINT PKT TD ×3 (08:57→22:21)
[2018-11-06] MEDS: PIPER-TAZO 2.25 GM (PMX) 50 ML IVPB ×2 (09:01→21:39)
[2018-11-06] MEDS: HYDROCODONE/APAP (5/325) TAB PO ×2 (12:10→21:39)
[2018-11-06] MEDS: BUPIVACAINE 0.5% 30 ML VIAL INJ (17:47)
[2018-11-06] MEDS: ATORVASTATIN 40 MG TAB PO (21:37)
[2018-11-07] MEDS: ACCU-CHEK XX (02:00)
[2018-11-07] MEDS: HYDROCODONE/APAP (5/325) TAB PO ×4 (04:10→20:17)
[2018-11-07 06:28] LABS: ADD MAN DIFF? NO
[2018-11-07 06:31] LABS: WHITE BLOOD COUNT 7.9 10^3/ul (4.8-10.8)
[2018-11-07 06:31] LABS: BASOPHIL # 0.1 10^3/ul (0.0-0.1); BASOPHILS % 1.3 % (0.0-2.0); EOSINOPHILS # 0.5 10^3/ul (0.0-0.5); HEMATOCRIT 27.3 % (37.0-47.0); HEMOGLOBIN 8.3 g/dl (12.0-16.0); LYMPHOCYTES # 1.8 10^3/ul (0.8-2.9); LYMPHOCYTES % 22.4 % (15.0-51.0); MEAN CORPUSCULAR HEMOGLOBIN 29.1 pg (29.0-33.0); MEAN CORPUSCULAR HGB CONC 30.4 g/dl (32.0-37.0); MEAN CORPUSCULAR VOLUME 95.8 fl (82.0-101.0); MEAN PLATELET VOLUME 10.4 fl (7.4-10.4); MONOCYTES % 13.2 % (0.0-11.0); NEUTROPHIL # 4.5 10^3/ul (1.6-7.5); NEUTROPHILS % 56.7 % (39.0-77.0); PLATELET COUNT 276 10^3/UL (140-415); RED BLOOD COUNT 2.85 10^6/ul (4.20-5.40); RED CELL DISTRIBUTION WIDTH 15.5 % (11.5-14.5)
[2018-11-07 06:55] LABS: ANION GAP 14 (5-13); BLOOD UREA NITROGEN 38 mg/dl (7-20); CALCIUM 7.9 mg/dl (8.4-10.2); CARBON DIOXIDE 26 mmol/L (21-31); CHLORIDE 96 mmol/L (97-110); CREATININE 5.91 mg/dl (0.44-1.00); Estimated GFR 7 mL/min (>60); GLUCOSE 89 mg/dl (70-220); PHOSPHORUS 6.1 mg/dl (2.5-4.9); POTASSIUM 4.6 mmol/L (3.5-5.1); SODIUM 136 mmol/L (135-144)
[2018-11-07 07:12] LABS: VANCOMYCIN,RANDOM 12.9 ug/ml
[2018-11-07] MEDS: INSULIN ASPART [NOVOLOG] 3 ML PEN SC ×4 (07:55→20:17)
[2018-11-07] MEDS: MULTIVIT/CA CARB/B CMPLX/FA TAB PO (08:03)
[2018-11-07] MEDS: CLOPIDOGREL 75 MG TAB PO (08:03)
[2018-11-07] MEDS: ASPIRIN (EC) 81 MG TAB PO (08:03)
[2018-11-07] MEDS: METOPROLOL 25 MG TAB PO ×2 (09:00→20:16)
[2018-11-07] MEDS: NITROGLYCERIN 2% 1 GM OINT PKT TD ×3 (09:00→20:18)
[2018-11-07] MEDS: BUPIVACAINE 0.5% 30 ML VIAL INJ (11:03)
[2018-11-07] MEDS: LEVETIRACETAM 500 MG (PMX) 100 ML IVPB ×2 (12:15→20:15)
[2018-11-07] MEDS: hydrALAzine 20 MG INJ IV (12:23)
[2018-11-07] MEDS: DOCUSATE SODIUM 100 MG CAP PO (12:24)
[2018-11-07] MEDS: PIPER-TAZO 2.25 GM (PMX) 50 ML IVPB ×2 (13:46→20:14)
[2018-11-07] MEDS: VANCOMYCIN 1 GM 250 ML IVPB (17:46)
[2018-11-07] MEDS: EPOETIN 4000 UNITS/1 ML INJ (ESRD) SC (17:49)
[2018-11-07] MEDS: ATORVASTATIN 40 MG TAB PO (20:15)
[2018-11-08] MEDS: ACCU-CHEK XX (02:00)
[2018-11-08 06:35] LABS: ADD MAN DIFF? NO
[2018-11-08 06:44] LABS: BASOPHIL # 0.1 10^3/ul (0.0-0.1); BASOPHILS % 1.3 % (0.0-2.0); EOSINOPHILS # 0.4 10^3/ul (0.0-0.5); EOSINOPHILS % 4.9 % (0.0-7.0); HEMATOCRIT 29.6 % (37.0-47.0); LYMPHOCYTES # 2.2 10^3/ul (0.8-2.9); LYMPHOCYTES % 26.2 % (15.0-51.0); MEAN CORPUSCULAR HEMOGLOBIN 29.5 pg (29.0-33.0); MEAN CORPUSCULAR HGB CONC 30.4 g/dl (32.0-37.0); MEAN PLATELET VOLUME 10.3 fl (7.4-10.4); MONOCYTE # 0.9 10^3/ul (0.3-0.9); MONOCYTES % 11.5 % (0.0-11.0); NEUTROPHIL # 4.6 10^3/ul (1.6-7.5); NEUTROPHILS % 55.7 % (39.0-77.0); PLATELET COUNT 286 10^3/UL (140-415); RED BLOOD COUNT 3.05 10^6/ul (4.20-5.40); RED CELL DISTRIBUTION WIDTH 15.7 % (11.5-14.5)
[2018-11-08 06:44] LABS: WHITE BLOOD COUNT 8.2 10^3/ul (4.8-10.8)
[2018-11-08 07:21] LABS: ANION GAP 11 (5-13); BLOOD UREA NITROGEN 23 mg/dl (7-20); CALCIUM 8.4 mg/dl (8.4-10.2); CARBON DIOXIDE 24 mmol/L (21-31); CHLORIDE 104 mmol/L (97-110); CREATININE 4.33 mg/dl (0.44-1.00); Estimated GFR 10 mL/min (>60); GLUCOSE 121 mg/dl (70-220); POTASSIUM 4.5 mmol/L (3.5-5.1); SODIUM 139 mmol/L (135-144)
[2018-11-08] MEDS: INSULIN ASPART [NOVOLOG] 3 ML PEN SC ×4 (07:55→21:00)
[2018-11-08] MEDS: CLOPIDOGREL 75 MG TAB PO (08:27)
[2018-11-08] MEDS: NITROGLYCERIN 2% 1 GM OINT PKT TD ×3 (08:27→21:52)
[2018-11-08] MEDS: METOPROLOL 25 MG TAB PO ×2 (08:27→21:51)
[2018-11-08] MEDS: MULTIVIT/CA CARB/B CMPLX/FA TAB PO (08:27)
[2018-11-08] MEDS: ASPIRIN (EC) 81 MG TAB PO (08:27)
[2018-11-08] MEDS: DOCUSATE SODIUM 100 MG CAP PO (08:27)
[2018-11-08] MEDS: HYDROCODONE/APAP (5/325) TAB PO ×3 (08:28→21:00)
[2018-11-08] MEDS: LEVETIRACETAM 500 MG (PMX) 100 ML IVPB ×2 (10:37→21:47)
[2018-11-08] MEDS: PIPER-TAZO 2.25 GM (PMX) 50 ML IVPB ×2 (10:38→21:52)
[2018-11-08] MEDS: hydrALAzine 20 MG INJ IV (15:50)
[2018-11-08] MEDS: ATORVASTATIN 40 MG TAB PO (21:51)
[2018-11-09] MEDS: ACCU-CHEK XX (02:00)
[2018-11-09 06:35] LABS: ADD MAN DIFF? NO
[2018-11-09 06:54] LABS: BASOPHIL # 0.1 10^3/ul (0.0-0.1); BASOPHILS % 1.2 % (0.0-2.0); EOSINOPHILS # 0.5 10^3/ul (0.0-0.5); EOSINOPHILS % 5.2 % (0.0-7.0); HEMATOCRIT 30.3 % (37.0-47.0); LYMPHOCYTES # 2.5 10^3/ul (0.8-2.9); LYMPHOCYTES % 28.1 % (15.0-51.0); MEAN CORPUSCULAR HEMOGLOBIN 28.8 pg (29.0-33.0); MEAN CORPUSCULAR HGB CONC 29.7 g/dl (32.0-37.0); MEAN CORPUSCULAR VOLUME 96.8 fl (82.0-101.0); MEAN PLATELET VOLUME 10.3 fl (7.4-10.4); MONOCYTE # 0.8 10^3/ul (0.3-0.9); NEUTROPHILS % 56.1 % (39.0-77.0); PLATELET COUNT 275 10^3/UL (140-415); RED BLOOD COUNT 3.13 10^6/ul (4.20-5.40); RED CELL DISTRIBUTION WIDTH 15.9 % (11.5-14.5)
[2018-11-09 06:54] LABS: WHITE BLOOD COUNT 8.9 10^3/ul (4.8-10.8)
[2018-11-09 07:20] LABS: ANION GAP 14 (5-13); BLOOD UREA NITROGEN 37 mg/dl (7-20); CALCIUM 8.2 mg/dl (8.4-10.2); CARBON DIOXIDE 22 mmol/L (21-31); CHLORIDE 107 mmol/L (97-110); CREATININE 6.35 mg/dl (0.44-1.00); Estimated GFR 7 mL/min (>60); GLUCOSE 99 mg/dl (70-220); SODIUM 143 mmol/L (135-144)
[2018-11-09] MEDS: INSULIN ASPART [NOVOLOG] 3 ML PEN SC ×4 (07:55→21:00)
[2018-11-09] MEDS: LEVETIRACETAM 500 MG (PMX) 100 ML IVPB ×2 (08:16→20:56)
[2018-11-09] MEDS: MULTIVIT/CA CARB/B CMPLX/FA TAB PO (08:23)
[2018-11-09] MEDS: DOCUSATE SODIUM 100 MG CAP PO (08:23)
[2018-11-09] MEDS: NITROGLYCERIN 2% 1 GM OINT PKT TD ×3 (08:24→21:03)
[2018-11-09] MEDS: CLOPIDOGREL 75 MG TAB PO (08:24)
[2018-11-09] MEDS: METOPROLOL 25 MG TAB PO ×2 (08:25→21:04)
[2018-11-09] MEDS: ASPIRIN (EC) 81 MG TAB PO (08:25)
[2018-11-09] MEDS: HYDROCODONE/APAP (5/325) TAB PO ×3 (08:59→21:00)
[2018-11-09] MEDS: PIPER-TAZO 2.25 GM (PMX) 50 ML IVPB ×2 (10:24→20:55)
[2018-11-09] MEDS: hydrALAzine 20 MG INJ IV (15:36)
[2018-11-09] MEDS: ATORVASTATIN 40 MG TAB PO (21:03)
[2018-11-10] MEDS: ACCU-CHEK XX (02:00)
[2018-11-10 06:13] LABS: VANCOMYCIN,RANDOM 22.6 ug/ml
[2018-11-10 06:23] LABS: CREATININE 7.59 mg/dl (0.44-1.00)
[2018-11-10 06:23] LABS: BLOOD UREA NITROGEN 49 mg/dl (7-20)
[2018-11-10] MEDS: INSULIN ASPART [NOVOLOG] 3 ML PEN SC ×4 (07:55→21:00)
[2018-11-10] MEDS: CLOPIDOGREL 75 MG TAB PO (08:05)
[2018-11-10] MEDS: ASPIRIN (EC) 81 MG TAB PO (08:05)
[2018-11-10] MEDS: PIPER-TAZO 2.25 GM (PMX) 50 ML IVPB ×2 (08:05→21:47)
[2018-11-10] MEDS: MULTIVIT/CA CARB/B CMPLX/FA TAB PO (08:05)
[2018-11-10] MEDS: DOCUSATE SODIUM 100 MG CAP PO (08:05)
[2018-11-10] MEDS: NITROGLYCERIN 2% 1 GM OINT PKT TD ×3 (08:06→21:47)
[2018-11-10] MEDS: LEVETIRACETAM 500 MG (PMX) 100 ML IVPB ×2 (08:10→23:39)
[2018-11-10] MEDS: METOPROLOL 25 MG TAB PO ×2 (08:11→21:46)
[2018-11-10] MEDS: HYDROCODONE/APAP (5/325) TAB PO ×3 (08:11→21:00)
[2018-11-10] MEDS: BISACODYL (EC) 5 MG TAB PO (17:20)
[2018-11-10] MEDS: EPOETIN 4000 UNITS/1 ML INJ (ESRD) SC (17:21)
[2018-11-10] MEDS: ATORVASTATIN 40 MG TAB PO (21:44)
[2018-11-10] MEDS: SENNA TAB PO (21:45)
[2018-11-11] MEDS: ACETAMINOPHEN 325 MG TAB PO (01:33)
[2018-11-11] MEDS: ACCU-CHEK XX (02:00)
[2018-11-11] MEDS: hydrALAzine 20 MG INJ IV ×2 (06:34→13:48)
[2018-11-11] MEDS: INSULIN ASPART [NOVOLOG] 3 ML PEN SC ×4 (07:55→21:00)
[2018-11-11] MEDS: HYDROCODONE/APAP (5/325) TAB PO ×3 (09:00→21:00)
[2018-11-11] MEDS: MULTIVIT/CA CARB/B CMPLX/FA TAB PO (09:12)
[2018-11-11] MEDS: LEVETIRACETAM 500 MG (PMX) 100 ML IVPB ×2 (09:12→21:06)
[2018-11-11] MEDS: NITROGLYCERIN 2% 1 GM OINT PKT TD (09:12)
[2018-11-11] MEDS: PIPER-TAZO 2.25 GM (PMX) 50 ML IVPB ×2 (09:12→21:42)
[2018-11-11] MEDS: CLOPIDOGREL 75 MG TAB PO (09:13)
[2018-11-11] MEDS: ASPIRIN (EC) 81 MG TAB PO (09:13)
[2018-11-11] MEDS: DOCUSATE SODIUM 100 MG CAP PO (09:13)
[2018-11-11] MEDS: METOPROLOL 25 MG TAB PO ×2 (09:13→21:02)
[2018-11-11] MEDS: SENNA TAB PO ×2 (09:13→21:00)
[2018-11-11] MEDS ORDERED: BUPIVACAINE 0.5% 30 ML VIAL INJ (10:00)
[2018-11-11 13:15] LABS: ANION GAP 16 (5-13); BLOOD UREA NITROGEN 31 mg/dl (7-20); CALCIUM 8.1 mg/dl (8.4-10.2); CARBON DIOXIDE 28 mmol/L (21-31); CHLORIDE 96 mmol/L (97-110); CREATININE 5.07 mg/dl (0.44-1.00); Estimated GFR 8 mL/min (>60); GLUCOSE 170 mg/dl (70-220); POTASSIUM 4.6 mmol/L (3.5-5.1); SODIUM 140 mmol/L (135-144)
[2018-11-11] MEDS: VANCOMYCIN 1 GM 250 ML IVPB (18:18)
[2018-11-11] MEDS: NIFEdipine (XL) 60 MG TAB PO (21:01)
[2018-11-11] MEDS: ATORVASTATIN 40 MG TAB PO (21:01)
[2018-11-11] MEDS: GABAPENTIN 100 MG CAP PO (21:02)
[2018-11-12] MEDS: hydrALAzine 20 MG INJ IV
[2018-11-12] MEDS: ARTIFICIAL TEARS 15 ML OPH BOTH EYES ×5 (00:08→21:00)
[2018-11-12] MEDS: ACCU-CHEK XX (02:00)
[2018-11-12] MEDS: INSULIN ASPART [NOVOLOG] 3 ML PEN SC ×4 (07:55→21:00)
[2018-11-12 08:56] LABS: ADD MAN DIFF? NO
[2018-11-12] MEDS: SENNA TAB PO ×2 (09:00→22:03)
[2018-11-12] MEDS: PIPER-TAZO 2.25 GM (PMX) 50 ML IVPB ×2 (09:00→21:00)
[2018-11-12] MEDS: DOCUSATE SODIUM 100 MG CAP PO (09:00)
[2018-11-12] MEDS: LEVETIRACETAM 500 MG (PMX) 100 ML IVPB ×2 (09:00→21:00)
[2018-11-12] MEDS: HYDROCODONE/APAP (5/325) TAB PO ×4 (09:00→22:01)
[2018-11-12 09:03] LABS: WHITE BLOOD COUNT 8.9 10^3/ul (4.8-10.8)
[2018-11-12 09:03] LABS: BASOPHIL # 0.1 10^3/ul (0.0-0.1); BASOPHILS % 1.2 % (0.0-2.0); EOSINOPHILS # 0.3 10^3/ul (0.0-0.5); EOSINOPHILS % 3.4 % (0.0-7.0); HEMATOCRIT 32.6 % (37.0-47.0); HEMOGLOBIN 9.9 g/dl (12.0-16.0); LYMPHOCYTES # 2.9 10^3/ul (0.8-2.9); LYMPHOCYTES % 32.5 % (15.0-51.0); MEAN CORPUSCULAR HGB CONC 30.4 g/dl (32.0-37.0); MEAN CORPUSCULAR VOLUME 95.6 fl (82.0-101.0); MEAN PLATELET VOLUME 10.4 fl (7.4-10.4); MONOCYTE # 0.9 10^3/ul (0.3-0.9); MONOCYTES % 9.5 % (0.0-11.0); NEUTROPHIL # 4.7 10^3/ul (1.6-7.5); PLATELET COUNT 298 10^3/UL (140-415); RED BLOOD COUNT 3.41 10^6/ul (4.20-5.40)
[2018-11-12] MEDS: MULTIVIT/CA CARB/B CMPLX/FA TAB PO (09:04)
[2018-11-12] MEDS: CLOPIDOGREL 75 MG TAB PO (09:04)
[2018-11-12] MEDS: NIFEdipine (XL) 60 MG TAB PO ×2 (09:04→22:02)
[2018-11-12] MEDS: GABAPENTIN 100 MG CAP PO ×3 (09:04→21:00)
[2018-11-12] MEDS: ASPIRIN (EC) 81 MG TAB PO (09:05)
[2018-11-12] MEDS: LISINOPRIL 20 MG TAB PO (09:05)
[2018-11-12] MEDS: METOPROLOL 25 MG TAB PO ×2 (09:05→22:03)
[2018-11-12 09:21] LABS: ANION GAP 18 (5-13); BLOOD UREA NITROGEN 38 mg/dl (7-20); CARBON DIOXIDE 26 mmol/L (21-31); CHLORIDE 98 mmol/L (97-110); CREATININE 6.88 mg/dl (0.44-1.00); Estimated GFR 6 mL/min (>60); GLUCOSE 101 mg/dl (70-220); POTASSIUM 4.7 mmol/L (3.5-5.1); SODIUM 142 mmol/L (135-144)
[2018-11-12] MEDS: LIDOCAINE 1% (MPF) 5 ML VIAL SC (15:30)
[2018-11-12] MEDS: EPOETIN 4000 UNITS/1 ML INJ (ESRD) SC (22:00)
[2018-11-12] MEDS: ATORVASTATIN 40 MG TAB PO (22:01)
[2018-11-12] MEDS: ACETAMINOPHEN 325 MG TAB PO (22:16)
[2018-11-13] MEDS: ACCU-CHEK XX (02:00)
[2018-11-13] MEDS: INSULIN ASPART [NOVOLOG] 3 ML PEN SC ×4 (07:45→21:34)
[2018-11-13] MEDS: GABAPENTIN 100 MG CAP PO ×3 (08:41→21:20)
[2018-11-13] MEDS: SENNA TAB PO ×2 (08:41→21:21)
[2018-11-13] MEDS: MULTIVIT/CA CARB/B CMPLX/FA TAB PO (08:41)
[2018-11-13] MEDS: CLOPIDOGREL 75 MG TAB PO (08:41)
[2018-11-13] MEDS: ASPIRIN (EC) 81 MG TAB PO (08:41)
[2018-11-13] MEDS: DOCUSATE SODIUM 100 MG CAP PO (08:41)
[2018-11-13] MEDS: LISINOPRIL 20 MG TAB PO (08:42)
[2018-11-13] MEDS: NIFEdipine (XL) 60 MG TAB PO ×2 (08:42→21:21)
[2018-11-13] MEDS: METOPROLOL 25 MG TAB PO ×2 (08:42→21:20)
[2018-11-13] MEDS: LEVETIRACETAM 500 MG (PMX) 100 ML IVPB (08:43)
[2018-11-13] MEDS: PIPER-TAZO 2.25 GM (PMX) 50 ML IVPB ×3 (08:43→21:19)
[2018-11-13] MEDS: ARTIFICIAL TEARS 15 ML OPH BOTH EYES ×4 (08:43→21:34)
[2018-11-13] MEDS: HYDROCODONE/APAP (5/325) TAB PO ×3 (08:46→21:00)
[2018-11-13] MEDS: LEVETIRACETAM 500 MG TAB PO ×2 (10:01→21:20)
[2018-11-13] MEDS: ACETAMINOPHEN 325 MG TAB PO (15:24)
[2018-11-13] MEDS: ATORVASTATIN 40 MG TAB PO (21:20)
[2018-11-14] MEDS: ACETAMINOPHEN 325 MG TAB PO ×2 (00:13→14:48)
[2018-11-14] MEDS: ACCU-CHEK XX (02:00)
[2018-11-14] MEDS: INSULIN ASPART [NOVOLOG] 3 ML PEN SC ×3 (07:32→17:21)
[2018-11-14] MEDS: ARTIFICIAL TEARS 15 ML OPH BOTH EYES ×4 (09:00→18:44)
[2018-11-14] MEDS: NIFEdipine (XL) 60 MG TAB PO (09:00)
[2018-11-14] MEDS: METOPROLOL 25 MG TAB PO (09:00)
[2018-11-14] MEDS: HYDROCODONE/APAP (5/325) TAB PO ×2 (09:00→13:00)
[2018-11-14] MEDS: LISINOPRIL 20 MG TAB PO (09:00)
[2018-11-14] MEDS: CLOPIDOGREL 75 MG TAB PO (09:02)
[2018-11-14] MEDS: SENNA TAB PO (09:02)
[2018-11-14] MEDS: MULTIVIT/CA CARB/B CMPLX/FA TAB PO (09:02)
[2018-11-14] MEDS: LEVETIRACETAM 500 MG TAB PO (09:02)
[2018-11-14] MEDS: ASPIRIN (EC) 81 MG TAB PO (09:02)
[2018-11-14] MEDS: GABAPENTIN 100 MG CAP PO ×3 (09:02→13:00)
[2018-11-14] MEDS: DOCUSATE SODIUM 100 MG CAP PO (09:03)
[2018-11-14] MEDS: PIPER-TAZO 2.25 GM (PMX) 50 ML IVPB ×2 (09:06→18:40)
[2018-11-14] MEDS: EPOETIN 4000 UNITS/1 ML INJ (ESRD) SC (17:00)
== END 2018-11-14 20:00 | disposition home or self-care (01) | DRG 682 ==
LOC: TEL 11-12 10:45 → E/R 15:13 → TEL 18:09
PROVIDERS: Internal Medicine
PROC: 5A1D70Z Performance of Urinary Filtration, Intermittent, Less than 6 Hours Per Day (ICD-10-PCS; principal; 2018-11-05)
DX: I13.11 Hypertensive heart and chronic kidney disease without heart failure, with stage 5 chronic kidney disease, or end stage renal disease (principal); N18.6 End stage renal disease; E11.52 Type 2 diabetes mellitus with diabetic peripheral angiopathy with gangrene; I96 Gangrene, not elsewhere classified; I16.0 Hypertensive urgency; I25.10 Atherosclerotic heart disease of native coronary artery without angina pectoris; E11.22 Type 2 diabetes mellitus with diabetic chronic kidney disease; Z99.2 Dependence on renal dialysis; Z95.1 Presence of aortocoronary bypass graft; Z86.74 Personal history of sudden cardiac arrest; I25.2 Old myocardial infarction; Z95.5 Presence of coronary angioplasty implant and graft; E78.5 Hyperlipidemia, unspecified; E87.5 Hyperkalemia; E83.9 Disorder of mineral metabolism, unspecified; Z87.891 Personal history of nicotine dependence; G40.909 Epilepsy, unspecified, not intractable, without status epilepticus; J01.30 Acute sphenoidal sinusitis, unspecified; J32.0 Chronic maxillary sinusitis; I65.22 Occlusion and stenosis of left carotid artery; E66.9 Obesity, unspecified; Z68.31 Body mass index [BMI] 31.0-31.9, adult; F41.9 Anxiety disorder, unspecified; I72.8 Aneurysm of other specified arteries; D63.1 Anemia in chronic kidney disease
CPT/HCPCS: 36415; 36569; 70450; 70551; 71045; 73718; 76937; 80048; 80061; 80202; 82550; 82553; 82565; 82962; 83036; 83735; 84100; 84484; 84520; 85025; 85610; 85651; 85730; 87081; 87340; 90935; 92526; 92610; 93005; 93880; 93922; 93971; 95819; 96374; 99291-25